=== PATIENT | male | born 1995 | race Native Hawaiian/Other Pacific Islander ===

== ENCOUNTER 2019-09-03 13:15 | Emergency (ER) | payer OTHER ==
[~2019-09-03] VITALS: Ht 177.8 cm; Wt 108.9 kg
[2019-09-03 14:16] LABS: PLATELET COUNT 311 K/uL (142-355)
[2019-09-03 14:25] LABS: POTASSIUM 3.6 mmol/L (3.6-5.2)
[2019-09-03 15:05] VITALS: BP 148/76; TEMP 98.9
== END 2019-09-03 15:05 | disposition home or self-care (01) ==
LOC: ED 13:15
PROVIDERS: Emergency Medicine
DX: J40 Bronchitis, not specified as acute or chronic (principal)
CPT/HCPCS: 80053; 85027; 87502; 87651; 99283